=== PATIENT | male | born 1950 | race Caucasian/White ===

== ENCOUNTER 2017-08-16 08:20 | Emergency (ER) | payer MEDICARE ==
[~2017-08-16] VITALS: Ht 177.8 cm; Wt 110.0 kg
[2017-08-16 08:26] VITALS: BP 192/98; PULSE 108; RESP 22; TEMP 98.1; O2SAT 96
--- NOTE | 2017-08-16 08:52 | PD ---
HPI Chief Complaint: Complaint Time Seen by Provider: 08:37 Travel History International Travel<30 days: No Contact w/Intl Traveler<30days: No Traveled to known affect area: No History of Present Illness HPI The patient is a 67-year-old male who presents to the emergency department for abdominal pressure and distention. The patient states he last urinated normally yesterday, had difficulty urinating this morning. He now complains of pressure discomfort in the lower aspect of the abdomen. He stated he had a small amount of blood in his urine yesterday after straining to urinate , denies any blood in the urine this morning, however, is only able to pass small amounts of urine. He denies any dysuria, frequency, urgency, or discharge. He denies any known history of benign prostatic hypertrophy. The patient is currently buying a local place, is from [place]. He denies any fever, chills, or sweats. He denies any associated flank pain, back pain, nausea, vomiting, or upper abdominal pain. [facility] Past Medical History Medical History: Denies Significant Hx Past Surgical History Narrative Surgical Dental surgery after tractor ran over his face Social History Tobacco Use: Yes Allergies-Medications (Allergen,Severity, Reaction): Coded Allergies: No Known Allergies (Unverified , 08/16/17) Review of Systems Except as stated in HPI: all other systems reviewed are Neg General / Constitutional: No: Fever Cardiovascular: No: Chest Pain or Discomfort Respiratory: No: Shortness of Breath Gastrointestinal: No: Nausea, Vomiting, Abdominal Pain Genitourinary: Positive: Decreased Urinary Output, Pelvic Pain, No: Urgency, Frequency, Dysuria Skin: No Rash Physical Exam Narrative GENERAL: Awake, alert, pleasant 67-year-old male who appears his stated age and is in no acute respiratory distress. SKIN: Focused skin assessment warm/dry. HEAD: Atraumatic. Normocephalic. EYES: No injection or drainage. NECK: Trachea midline. No JVD. CARDIOVASCULAR: Regular rate and rhythm. No murmur appreciated. RESPIRATORY: No accessory muscle use. Clear to auscultation. Breath sounds equal bilaterally. GASTROINTESTINAL: Abdomen obese, small reducible umbilical hernia. Lower abdomen distended with mild tenderness over the suprapubic region. Genitourinary: Circumcised phallus. No tenderness over the testicles. No visible blood at the meatus. MUSCULOSKELETAL: No obvious deformities. No clubbing. No cyanosis. No edema. NEUROLOGICAL: Awake and alert. No obvious cranial nerve deficits. Motor grossly within normal limits. Normal speech. PSYCHIATRIC: Appropriate mood and affect; insight and judgment normal. Data Data Last Documented VS Vital Signs Date Time Temp Pulse Resp B/P (MAP) Pulse Ox O2 Delivery O2 Flow Rate FiO2 08/16/17 08:26 98.1 108 22 192/98 (129) 96 Orders Orders Basic Metabolic Panel (Bmp) (08/16/17 08:47) Urinalysis - C+S If Indicated (08/16/17 08:47) Urinary Catheter Insert/Apply (08/16/17 08:47) Lidocaine 2% Jelly (Xylocaine 2% Jelly) (08/16/17 09:00) Lidocaine 2% Jelly (Xylocaine 2% Jelly) (08/16/17 09:15) Bag, Leg 32oz Sterile Large Ea (08/16/17 10:29) Ed Discharge Order (08/16/17 10:40) Labs Laboratory Tests Test 08/16/17 08:58 08/16/17 09:22 Blood Urea Nitrogen 14 MG/DL Creatinine 0.80 MG/DL Random Glucose 92 MG/DL Calcium Level 8.1 MG/DL Sodium Level 136 MEQ/L Potassium Level 3.8 MEQ/L Chloride Level 107 MEQ/L Carbon Dioxide Level 23.0 MEQ/L Anion Gap 6 MEQ/L Estimat Glomerular Filtration Rate 96 ML/MIN Urine Color LIGHT-YELLOW Urine Turbidity CLEAR Urine pH 5.5 Urine Specific [place] 1.009 Urine Protein NEG mg/dL Urine Glucose (UA) NEG mg/dL Urine Ketones NEG mg/dL Urine Occult Blood SMALL Urine Nitrite NEG Urine Bilirubin NEG Urine Urobilinogen LESS THAN 2.0 MG/DL Urine Leukocyte Esterase NEG Urine RBC 4 /hpf Urine WBC LESS THAN 1 /hpf Urine Mucus FEW /lpf Microscopic Urinalysis Comment CATH-CULT NOT IND MDM Medical Decision Making Medical Screen Exam Complete: Yes Emergency Medical Condition: Yes Medical Record Reviewed: Yes Interpretation(s) Laboratory Tests Test 08/16/17 08:58 08/16/17 09:22 Blood Urea Nitrogen 14 MG/DL Creatinine 0.80 MG/DL Random Glucose 92 MG/DL Calcium Level 8.1 MG/DL Sodium Level 136 MEQ/L Potassium Level 3.8 MEQ/L Chloride Level 107 MEQ/L Carbon Dioxide Level 23.0 MEQ/L Anion Gap 6 MEQ/L Estimat Glomerular Filtration Rate 96 ML/MIN Urine Color LIGHT-YELLOW Urine Turbidity CLEAR Urine pH 5.5 Urine Specific [place] 1.009 Urine Protein NEG mg/dL Urine Glucose (UA) NEG mg/dL Urine Ketones NEG mg/dL Urine Occult Blood SMALL Urine Nitrite NEG Urine Bilirubin NEG Urine Urobilinogen LESS THAN 2.0 MG/DL Urine Leukocyte Esterase NEG Urine RBC 4 /hpf Urine WBC LESS THAN 1 /hpf Urine Mucus FEW /lpf Microscopic Urinalysis Comment CATH-CULT NOT IND Differential Diagnosis Differential diagnosis includes urinary obstruction, obstructive uropathy, BPH, cystitis, complicated UTI, epididymitis, nephrolithiasis, acute kidney injury, acute renal failure. Narrative Course A bedside ultrasound was performed which reveals a distended bladder that goes up to the umbilicus. Therefore, Holcomb catheter was ordered. BMP and UA were sent to lab. The patient had over 700 cc of clear yellow urine returned after Holcomb catheter was placed, the Holcomb catheter was then clamped. The patient's symptoms significantly improved. The patient then had another 500 cc of clear yellow urine output. UA reveals 4 RBCs, no evidence of infection. Creatinine is normal. The patient's Holcomb catheter was attached to a leg bag. The patient will be placed on Flomax and is advised to follow-up with urology. Return if symptoms worsen or progress. Procedures Procedure Narrative A bedside ultrasound was performed with a curvilinear probe of the bladder, revealing a distended bladder up to the level of the umbilicus. The patient tolerated the procedure without difficulty. There was no obvious complications. Diagnosis Primary Impression: Urinary retention Patient Instructions: General Instructions Additional Instructions: Follow-up with urology. Flomax as directed. Leg bag as directed. Return if symptoms worsen or progress. Med/Other Pt SpecificInfo: Prescription(s) given Scripts Tamsulosin (Flomax) 0.4 Mg Cap 0.4 MG PO HS for Manage Prostate Problems for 7 Days, #7 CAP 0 Refills Prov: Seth Crespo MD 08/16/17 Disposition: 01 DISCHARGE HOME Condition: Stable Seth Crespo MD Aug 16, 2017 08:52
[2017-08-16] MEDS ORDERED: LIDOCAINE 2% JELLY 30 ML TUBE TOPICAL ONE (09:00)
[2017-08-16] MEDS ORDERED: LIDOCAINE 2% JELLY 5 ML TUBE TOPICAL ONE (09:15)
[2017-08-16 09:48] LABS: BILIRUBIN, URINE NEG (NEG); BLOOD, URINE SMALL (NEG); GLUCOSE,URINE NEG (NEG); KETONE, URINE NEG (NEG); NITRITE,URINE NEG (NEG); PH, URINE 5.5 (5.0-8.5); URINE COLOR LIGHT-YELLOW (YELLW/STRAW); URINE LEUKOCYTE ESTERASE NEG (NEG)
[2017-08-16 09:51] LABS: MUCUS URINE FEW /lpf (OCC)
[2017-08-16 10:24] LABS: CALCIUM 8.1 MG/DL (8.5-10.1); CREATININE 0.8 MG/DL (0.60-1.30)
[2017-08-16] MEDS ORDERED: TAMS5CAP PO (10:42)
[2017-08-16 10:50] VITALS: BP 142/65
== END 2017-08-16 10:51 | disposition home or self-care (01) ==
LOC: NEPE 08:20
DX: R33.9 Retention of urine, unspecified (principal); R31.9 Hematuria, unspecified; Z72.0 Tobacco use
CPT/HCPCS: 51702; 80048; 81001